=== PATIENT | female | born 1970 | race Hispanic/Latino ===

== ENCOUNTER 2018-01-01 18:24 | Emergency (ER) | payer SELFPAY ==
--- NOTE | 2018-01-01 20:56 | RAD ---
CHEST TWO VIEWS 01/01/18 HISTORY: Cough with fever. COMPARISON: 11/22/15 study. Heart size is upper limits of normal. Mediastinal structures are unremarkable. Lungs are clear of inf iltrates. IMPRESSION: No active intrathoracic disease. POS: [facility]
== END 2018-01-01 21:37 | disposition home or self-care (01) ==
LOC: ERS 18:24
DX: J20.9 Acute bronchitis, unspecified (principal); E11.9 Type 2 diabetes mellitus without complications; E78.00 Pure hypercholesterolemia, unspecified
CPT/HCPCS: 71046

== ENCOUNTER 2019-08-23 21:04 | Emergency (ER) | payer SELFPAY ==
[2019-08-23 21:42] LABS: Bilirubin Negative (Negative); Blood, Urine 1+ (Negative); Clarity Clear (Clear); Glucose, Urine (Dipstick) Normal (Negative); Leukocyte 500 Leu/uL (Negative); Nitrite Negative (Negative); Protein, Urine (Dipstick) Negative (Neg-Trace); RBC/HPF 0-3 HPF (0-3); Squamous Epithelial 0-3 HPF (0-3); Urobilinogen Normal mg/dL (Less than 2); WBC/HPF Greater than 50 HPF (0-3)
[2019-08-23 21:44] LABS: #Basophils 0.1 thou/uL (0.0-0.2); #Eosinphils 0.1 thou/uL (0.0-0.7); #Lymphocytes 3.7 thou/uL (1.20-3.40); #Monocytes 0.6 thou/uL (0.11-0.59); #Neutrophils 6.5 thou/uL (1.40-6.50); %Basophils 0.7 % (0.0-1.0); %Eosinophils 1.3 % (0.0-10.0); %Lymphocytes 33.5 % (21.0-51.0); %Monocytes 5.2 % (0.0-10.0); %Neutrophils 59.3 % (42.0-75.0); Hemoglobin 15.1 g/dL (12.0-16.0); Mean Corpuscular HGB CONC 34.8 g/dL (32.0-36.0); Mean Corpuscular Hemoglobin 30.1 pg (27.0-31.0); Mean Corpuscular Volume 86.3 fL (78.0-98.0); Mean Platelet Volume 8.5 fL (7.4-10.4); Platelet Count 308 thou/uL (130-400); RBC Distribution Width 11.9 % (11.5-14.5); Red Blood Cell (RBC) Count 5.04 mill/uL (4.20-5.40)
[2019-08-23] MEDS ORDERED: Ondansetron PF 4 MG/2 ML Vial ONE ×2 (21:44→23:10)
[2019-08-23] MEDS ORDERED: Morphine 10 MG/ML VIAL ONE (21:44)
[2019-08-23 21:51] LABS: Bacteria/HPF Rare-Few HPF (None Seen)
[2019-08-23 22:03] LABS: ALT (SGPT) 33 U/L (8-55); AST (SGOT) 25 U/L (5-34); Albumin 4.6 g/dL (3.5-5.0); Alkaline Phosphatase 100 U/L (40-150); Anion Gap 12 mmol/L (10-20); BUN (Urea Nitrogen) 12 mg/dL (7.0-18.7); Bilirubin, Total 0.3 mg/dL (0.2-1.2); Calc. Creatinine Clearance 0 mL/min (70-130); Carbon Dioxide 26 mmol/L (22-29); Chloride 104 mmol/L (98-107); Estimated GFR-MDRD 71; Globulin 3.7 g/dL (2.4-3.5); Glucose 125 mg/dL (70-105); Protein, Total 8.3 g/dL (6.0-8.3); Sodium 138 mmol/L (136-145)
--- NOTE | 2019-08-23 22:37 | CT ---
CT of abdomen and pelvis: 08/23/2019 COMPARISON: 12/06/2013 HISTORY: Right flank pain, hematuria TECHNIQUE: Axial CT imaging at 5 mm intervals from lung bases through pubic symphysis without contras t. Coronal reformatted imaging obtained. FINDINGS: Lack of contrast media limits assessment of the viscera, bowel, vascular structures, and fo r lymphadenopathy. The visualized lung bases are unremarkable. No free intraperitoneal air. The hepatic parenchyma is hy podense, suggesting steatosis. The spleen, gallbladder, pancreas, and adrenal glands are grossly unremarkable. There is no nephrolithiasis seen on either side. There is no calcification seen along the course of either ureter. There is no evidence for obstructiv e uropathy on either side. Scattered diverticulosis of the descending colon and sigmoid colon noted with no evidence for diverti culitis. The appendix is unremarkable. No acute osseous abnormality. IMPRESSION: No nephrolithiasis or evidence of obstructive uropathy.
[2019-08-23] MEDS ORDERED: cefTRIAXone\\ROCEPHIN 1 GM VIAL ONE (22:49)
[2019-08-23] MEDS ORDERED: Sodium Chloride 0.9% 100 ML ONE (22:49)
== END 2019-08-23 23:20 | disposition home or self-care (01) ==
LOC: ERS 21:04
DX: N12 Tubulo-interstitial nephritis, not specified as acute or chronic (principal); E11.9 Type 2 diabetes mellitus without complications; E78.5 Hyperlipidemia, unspecified; E78.00 Pure hypercholesterolemia, unspecified
CPT/HCPCS: 74176; 80053; 81003; 81015; 85025; 87077; 87086; 87186; 96361; 96365; 96375; 96376; J0696; J2270; J2405; J3490

== ENCOUNTER 2020-01-30 05:41 | Emergency (ER) | payer SELFPAY ==
--- NOTE | 2020-01-30 08:41 | RAD ---
JAZ CHEST: Date: 01/30/2020 HISTORY: Cough. FINDINGS: Lungs are clear. Heart and mediastinum appear normal. Vasculature normal. IMPRESSION: No acute findings. POS: [facility]
== END 2020-01-30 08:21 | disposition left against medical advice (07) ==
LOC: ERS 05:41
DX: Z53.21 Procedure and treatment not carried out due to patient leaving prior to being seen by health care provider (principal)
CPT/HCPCS: 71045

== ENCOUNTER 2020-01-30 15:31 | Emergency (ER) | payer SELFPAY | END 2020-01-30 17:05 | disposition home or self-care (01) | LOC: ERS 15:31 | DX: J10.1 Influenza due to other identified influenza virus with other respiratory manifestations (principal); R07.89 Other chest pain; E11.9 Type 2 diabetes mellitus without complications; E78.5 Hyperlipidemia, unspecified | CPT/HCPCS: 87804; 93005 ==

== ENCOUNTER 2021-11-12 14:42 | Emergency (ER) | payer SELFPAY ==
[2021-11-12 16:05] LABS: Actual Bicarbonate (HCO3v) 27 mEq/L (22-28); Analyzer IN Cardio ER; Calcium, Ionized (venous) 1.14 mmol/L (1.16-1.32); Chloride (VBG) 99 mmol/L (98-106); Hemoglobin (Hb) 15.3 g/dL (11.7-16.0); Potassium (VBG) 3.87 mmol/L (3.70-5.30); Sodium 136.6 mmol/L (133-146); pH (venous) 7.38 (7.32-7.43)
[2021-11-12 16:08] LABS: #Eosinphils 0.1 thou/uL (0.0-0.7); #Lymphocytes 2.7 thou/uL (1.20-3.40); #Monocytes 0.4 thou/uL (0.11-0.59); #Neutrophils 5.1 thou/uL (1.40-6.50); %Basophils 0.3 % (0.0-1.0); %Eosinophils 1.2 % (0.0-10.0); %Lymphocytes 32.4 % (21.0-51.0); %Monocytes 4.3 % (0.0-10.0); %Neutrophils 61.8 % (42.0-75.0); Hemoglobin 14.6 g/dL (12.0-16.0); Mean Corpuscular HGB CONC 33.2 g/dL (32.0-36.0); Mean Corpuscular Hemoglobin 29.6 pg (27.0-31.0); Mean Corpuscular Volume 89.3 fL (78.0-98.0); Mean Platelet Volume 8.8 fL (7.4-10.4); Platelet Count 279 thou/uL (130-400); RBC Distribution Width 11.9 % (11.5-14.5); Red Blood Cell (RBC) Count 4.92 mill/uL (4.20-5.40); White Blood Cell (WBC) Count 8.3 thou/uL (4.8-10.8)
[2021-11-12 16:29] LABS: Bacteria/HPF 4+ HPF (None Seen); Bilirubin Negative (Negative); Blood, Urine Negative (Negative); Clarity Clear (Clear); Glucose, Urine (Dipstick) Greater than 1000 mg/dL (Negative); Ketone, Urine Trace mg/dL (Negative); Leukocyte 75 Leu/uL (Negative); Nitrite Negative (Negative); Protein, Urine (Dipstick) Negative (Neg-Trace); RBC/HPF 0-3 HPF (0-3); Specific Gravity, Urine 1.018 (1.002-1.036); Squamous Epithelial 0-3 HPF (0-3); Urobilinogen Normal mg/dL (Less than 2)
[2021-11-12 16:30] LABS: ALT (SGPT) 26 U/L (8-55); AST (SGOT) 22 U/L (5-34); Albumin 4.1 g/dL (3.5-5.0); Alkaline Phosphatase 98 U/L (40-110); Anion Gap 13 mmol/L (10-20); BUN (Urea Nitrogen) 7 mg/dL (9.8-20.1); Bilirubin, Total 0.5 mg/dL (0.2-1.2); Calc. Creatinine Clearance 0 mL/min (70-130); Calcium 9.4 mg/dL (7.8-10.44); Carbon Dioxide 24 mmol/L (22-29); Chloride 102 mmol/L (98-107); Globulin 2.9 g/dL (2.4-3.5); Glucose 312 mg/dL (70-105); Lipase 13 U/L (8-78); Phosphorus 3.8 mg/dL (2.3-4.7); Potassium 3.9 mmol/L (3.5-5.1); Sodium 135 mmol/L (136-145)
== END 2021-11-12 17:25 | disposition home or self-care (01) ==
LOC: ERS 14:42
DX: N39.0 Urinary tract infection, site not specified (principal); E11.65 Type 2 diabetes mellitus with hyperglycemia; E78.5 Hyperlipidemia, unspecified; E78.00 Pure hypercholesterolemia, unspecified
CPT/HCPCS: 36415; 36416; 71045; 80053; 81003; 81015; 82010; 82805; 83690; 83735; 84100; 84484; 85025; 87077; 87086; 87186; 93005

== ENCOUNTER 2022-09-02 20:12 | Emergency (ER) | payer SELFPAY | END 2022-09-02 22:05 | disposition home or self-care (01) | LOC: ERS 20:12 | DX: J03.90 Acute tonsillitis, unspecified (principal) | CPT/HCPCS: 99282 ==